=== PATIENT | male | born 1985 | race African-American/Black ===

== ENCOUNTER 2020-02-06 12:23 | Emergency (ER) | payer BC ==
[~2020-02-06] VITALS: Ht 170.2 cm; Wt 95.3 kg
[2020-02-06 12:41] VITALS: Ht 170.2 cm; Wt 95.3 kg
[2020-02-06 13:30] LABS: BASOPHIL % 0.3 % (0-2); PLATELET COUNT 304 x10^3mcL (130-400); RED CELL DISTRIBUTION WIDTH 12.9 % (11.5-14.5)
[2020-02-06 13:37] LABS: ALKALINE PHOSPHATASE 66 U/L (46-116); ALT/SGPT 32 U/L (16-63); AST/SGOT 20 U/L (15-37); BILIRUBIN TOTAL 0.49 mg/dL (0.20-1.00); CALCIUM 8.7 mg/dL (8.5-10.1); CARBON DIOXIDE 24.4 mmol/L (21-32); CHLORIDE SERUM 102 mmol/L (98-107); CREATININE SERUM 1.4 mg/dL (0.7-1.3); GFR1 > 60 mL/min; GLUCOSE SERUM 194 mg/dL (74-106); MAGNESIUM 1.6 mg/dL (1.8-2.4); SODIUM SERUM 137 mmol/L (136-145); TOTAL PROTEIN, SERUM 7.7 g/dL (6.4-8.2)
[2020-02-06 13:42] LABS: T3 TOTAL 1.21 ng/mL
[2020-02-06 13:57] LABS: POTASSIUM SERUM 2.9 mmol/L (3.5-5.1)
[2020-02-06 13:59] LABS: FREE T4 1.42 ng/dL (0.76-1.46); FREE THYROXINE INDEX 2.7 ug/dL (1.4-4.5); T4(THYROXINE) 7.2 ug/dL (4.7-13.3)
[2020-02-06 15:46] LABS: AMPHETAMINE QUAL UR NONE DETECTED (See below)
[2020-02-06 16:39] VITALS: BP 127/68
== END 2020-02-06 16:39 | disposition home or self-care (01) ==
LOC: ED 12:23
PROVIDERS: Emergency Medicine
DX: E87.6 Hypokalemia (principal); E83.42 Hypomagnesemia; J45.909 Unspecified asthma, uncomplicated; R00.2 Palpitations; R06.02 Shortness of breath; R20.2 Paresthesia of skin
CPT/HCPCS: 84439; J3475; J7030; Q0092

== ENCOUNTER 2020-05-29 16:56 | Emergency (ER) | payer BC ==
[~2020-05-29] VITALS: Ht 172.7 cm; Wt 98.0 kg
[2020-05-29 16:57] VITALS: Ht 172.7 cm; Wt 98.0 kg
[2020-05-29 17:56] LABS: CALCIUM 9.1 mg/dL (8.5-10.1); CARBON DIOXIDE 24.9 mmol/L (21-32); CHLORIDE SERUM 101 mmol/L (98-107); CREATININE SERUM 1.1 mg/dL (0.7-1.3); GFR1 > 60 mL/min; GLUCOSE SERUM 108 mg/dL (74-106); POTASSIUM SERUM 3.2 mmol/L (3.5-5.1); SODIUM SERUM 138 mmol/L (136-145)
[2020-05-29 18:00] LABS: AMPHETAMINE QUAL UR NONE DETECTED (See below)
[2020-05-29 18:00] LABS: ALBUMIN 3.8 g/dL (3.4-5.0); ALKALINE PHOSPHATASE 68 U/L (46-116); ALT/SGPT 34 U/L (16-63); AST/SGOT 21 U/L (15-37); BILIRUBIN TOTAL 0.4 mg/dL (0.20-1.00); TOTAL PROTEIN, SERUM 7.4 g/dL (6.4-8.2)
[2020-05-29 18:50] VITALS: BP 135/90
== END 2020-05-29 18:50 | disposition home or self-care (01) ==
LOC: ED 16:56
PROVIDERS: Emergency Medicine
DX: F41.9 Anxiety disorder, unspecified (principal); E87.6 Hypokalemia; J45.909 Unspecified asthma, uncomplicated; Z98.890 Other specified postprocedural states